=== PATIENT | male | born 1945 | race Hispanic/Latino ===

== ENCOUNTER 2019-02-26 17:20 | Emergency (ER) | payer OTHER ==
[2019-02-26] MEDS ORDERED: Ondansetron PF 4 MG/2 ML Vial ONE (17:45)
[2019-02-26 17:51] LABS: #Eosinphils 0.1 thou/uL (0.0-0.7); #Monocytes 0.4 thou/uL (0.11-0.59); #Neutrophils 5.2 thou/uL (1.40-6.50); %Basophils 0.7 % (0.0-1.0); %Eosinophils 0.7 % (0.0-10.0); %Lymphocytes 15.4 % (21.0-51.0); %Monocytes 5.6 % (0.0-10.0); %Neutrophils 77.5 % (42.0-75.0); Hemoglobin 11.4 g/dL (14.0-18.0); Mean Corpuscular HGB CONC 31.7 g/dL (32.0-36.0); Mean Corpuscular Hemoglobin 29.9 pg (27.0-31.0); Mean Corpuscular Volume 94.3 fL (78.0-98.0); Mean Platelet Volume 5.7 fL (7.4-10.4); Platelet Count 210 thou/uL (130-400); Red Blood Cell (RBC) Count 3.82 mill/uL (4.70-6.10); White Blood Cell (WBC) Count 6.7 thou/uL (4.8-10.8)
[2019-02-26 18:09] LABS: ALT (SGPT) 21 U/L (8-55); AST (SGOT) 19 U/L (5-34); Albumin 4.3 g/dL (3.4-4.8); Alkaline Phosphatase 57 U/L (40-150); Anion Gap 17 mmol/L (10-20); BUN (Urea Nitrogen) 16 mg/dL (8.4-25.7); Bilirubin, Total 0.4 mg/dL (0.2-1.2); Calc. Creatinine Clearance 0 mL/min (70-130); Calcium 9.6 mg/dL (7.8-10.44); Carbon Dioxide 22 mmol/L (23-31); Chloride 102 mmol/L (98-107); Estimated GFR-MDRD 59; Globulin 3.2 g/dL (2.4-3.5); Glucose 166 mg/dL (83-110); Lipase 24 U/L (8-78); Potassium 4.4 mmol/L (3.5-5.1); Protein, Total 7.5 g/dL (5.8-8.1); Sodium 137 mmol/L (136-145)
--- NOTE | 2019-02-26 20:34 | CT ---
CT ABDOMEN AND PELVIS WITH CONTRAST: 02/26/[address] of the abdomen and pelvis was done for evaluation of nausea and vomiting. Axial slices were acquired followed by coronal and sagittal reconstructions. The lung bases are clear except for a little bit of dependent atelectasis posteriorly. A small hiatal hernia is present. Some coronary artery calcifications were seen. The liver, spleen, pancreas, adrenal glands and abdominal aorta showed no acute findings. Some tiny g allstones are seen in the gallbladder, and the gallbladder was somewhat generous in size at 9.5 cm in length, but the wall does not seem thick and there is no inflammatory change around it. The kidneys showed no definite mass. There is a little inhomogeneity centrally, but not enough to call pathology here. A small subcentimeter cyst or two were seen associated with the right kidney. The bowel shows no distention, wall thickening, or inflammatory changes around it. The stomach is not distended. The positioning of the bowel is somewhat unusual with the cecum riding fairly high and so me small bowel filling in the right lower quadrant. No inflammatory changes were seen around any of i t. No free air or free fluid was seen. CT of the pelvis showed no pelvic masses, fluid collections, or inflammatory changes. There is extens michelle scarring in the suprapubic region. I understand that there was prior surgery here. Very mild spon dylolisthesis of L5 on S1 is present due to facet arthritis. No vertebral fractures were seen. An inc idental finding is calcification in some of the deep fascial sheaths of the penis, mainly around the corpora cavernosa. Also noted is a fat filled left inguinal hernia. IMPRESSION: 1. No findings to explain the patient's nausea and vomiting. 2. Small gallstones and generous size gallbladder, but no wall thickening or inflammatory change s around it. 3. No acute abnormality of bowel appreciated. 4. Small hiatal hernia. 5. Scarring of the low anterior abdominal wall in the suprapubic region from prior surgery. POS: HOME
== END 2019-02-26 19:05 | disposition home or self-care (01) ==
LOC: BURERS 17:20
DX: K80.20 Calculus of gallbladder without cholecystitis without obstruction (principal); E11.9 Type 2 diabetes mellitus without complications; K21.9 Gastro-esophageal reflux disease without esophagitis; I10 Essential (primary) hypertension
CPT/HCPCS: 74177; 80053; 83605; 83690; 85025; 93005; 96374; J2405